=== PATIENT | female | born 1960 | race Caucasian/White ===

== ENCOUNTER 2023-03-10 08:05 | Emergency (ER) | payer BC, SELFPAY ==
--- NOTE | 2023-03-10 08:17 | ED.SKABFB ---
HPI - Skin/Abscess/Foreign Bdy General Chief complaint: Skin/Abscess/Foreign Body <Josefa Jiménez APRN - Last Filed: 03/10/23 08:34> Stated complaint: Left Arm and Leg Rash <Josefa Jiménez APRN - Last Filed: 03/10/23 08:34> Time Seen by Provider: 03/10/23 08:18 <Josefa Jiménez APRN - Last Filed: 03/10/23 08:34> Source: patient and RN notes reviewed <Josefa Jiménez APRN - Last Filed: 03/10/23 08:34> patient and RN notes reviewed <KEL Carpenter - Last Filed: 03/10/23 08:23> Mode of arrival: ambulatory <Josefa Jiménez APRN - Last Filed: 03/10/23 08:34> Limitations: no limitations <Josefa Jiménez APRN - Last Filed: 03/10/23 08:34> History of Present Illness HPI narrative: Patient is a 62-year-old female who presents to the [facility] with complaints of rash to her left arm and leg. Patient states that she noticed the rash on Wednesday evening. Patient states that earlier in the week she was helping her daughter by picking up branches that followed the yard after a storm with her grand kids. Patient reports itching to the areas with the rash. States that she has been using vinegar on the rash to help with itching. Patient states she thinks that the rash is now spreading to her right leg. She denies recent illness or fever. <Josefa Jiménez APRN - Last Filed: 03/10/23 08:34> Related Data Home medications: Home Medications Medication Instructions Recorded Confirmed metformin 500 mg tablet 500 mg PO BID 03/10/23 03/10/23 <Josefa Jiménez APRN - Last Filed: 03/10/23 08:34> Allergies/Adverse reactions: Allergies Allergy/AdvReac Type Severity Reaction Status Date / Time Penicillins Allergy Intermediate Rash Verified 03/10/23 08:31 <Josefa Jiménez APRN - Last Filed: 03/10/23 08:34> Review of Systems Review of Systems: CONSTITUTIONAL: Denies fever, chills, or sweats. EYES: Denies visual changes, redness, or discharge. ENT: Denies otalgia and sore throat CARDIOVASCULAR: Denies chest pain, palpitations, or edema. RESPIRATORY: Denies cough or dyspnea. GASTROINTESTINAL: Denies abdominal pain, nausea, vomiting, or diarrhea. GENITOURINARY: Denies dysuria or hematuria. SKIN: Reports rash and itching. MUSCULOSKELETAL: Denies back pain, joint pain, or myalgia. NEUROLOGIC: Denies headache, numbness, or weakness. Pertinent positives per HPI. <Josefa Jiménez APRN - Last Filed: 03/10/23 08:34> PMF[facility] Comments At the time of my signature, I reviewed and agree with the nursing past medical, surgical, social, and family history. There is no relevant family history pertinent to the patient complaint. <Josefa Jiménez APRN - Last Filed: 03/10/23 08:34> Exam Narrative: GENERAL: This is a well-nourished, well-developed patient, in no apparent distress. HEAD: normocephalic, atraumatic. EYES: Sclera clear/white. Vision is grossly intact. EARS: External ears normal. Hearing grossly intact. NOSE: External nose normal with no obvious nasal discharge, nares without redness, no rhinorrhea. THROAT: Mucous membranes moist, posterior pharynx clear. NECK: Neck supple, non-tender without lymphadenopathy, masses or thyromegaly. CARDIOVASCULAR: Regular rate and rhythm without murmurs, gallops, or rubs. RESPIRATORY: Clear to auscultation. Breath sounds equal bilaterally. No wheezes, rales, or rhonchi. GASTROINTESTINAL: Abdomen soft, non-tender, nondistended. Bowel sounds are active. No hepato-splenomegaly, or palpable masses. No guarding. SKIN: warm, intact with no suspicious lesions, good texture and turgor. Vesicular rash noted to left leg, left arm, and minimally on the right leg. NEURO: awake, alert, and oriented to person, place and time. There were no obvious focal neurologic abnormalities. <Josefa Jiménez APRN - Last Filed: 03/10/23 08:34> Course Course Level of Care: Express Care Visit <Josefa Jiménez HOMEBIRTH MIDWIFE - [place]
[2023-03-10 08:20] VITALS: BP 144/74; PULSE 57; RESP 16; TEMP 36.5; O2SAT 100
== END 2023-03-10 08:35 | disposition home or self-care (01) ==
PROVIDERS: Emergency Provider Nurse Practitioner; PCP Internal Medicine Geriatric Medicine
DX: L24.7 Irritant contact dermatitis due to plants, except food (principal); E11.9 Type 2 diabetes mellitus without complications
CPT/HCPCS: 99213; G0463

== ENCOUNTER 2023-12-13 15:18 | Emergency (ER) | payer BC, SELFPAY ==
--- NOTE | ~2023-12-13 | XR_ITS ---
EXAMINATION: XR knee RT min 4V DATE: 12/13/2023 16:00 INDICATION: Right knee pain. TECHNIQUE: 6 views of right knee were obtained. COMPARISON: None. FINDINGS: There is lateral subluxation of patella. No fracture. There is moderate osteoarthritis of p atellofemoral compartment and mild osteoarthritis of medial and lateral compartments. No knee joint e ffusion. IMPRESSION: 1. Moderate right knee osteoarthritis. Reviewed, dictated and finalized at location A.
[2023-12-13 15:26] VITALS: BP 152/76; PULSE 55; RESP 16; TEMP 36.8; O2SAT 100
--- NOTE | 2023-12-13 15:52 | ED.EXTPRO ---
HPI - Extremity Problem General Chief complaint: Extremity Problem,Nontraumatic Stated complaint: Right knee pain Source: patient Mode of arrival: ambulatory Limitations: no limitations History of Present Illness HPI Narrative: 63-year-old female presented for complaint of right lateral knee pain for about 1 week. She endorses at the onset she started walking more often, and had been kneeling often while working on [employer]. She states at one point she was unable to bear weight on the knee after kneeling for an extended amount of time. She denies swelling, deformity, numbness, tingling, weakness of lower extremity. Has not taken anything pain stating she has high pain tolerance. Rates pain 02/15. Related Data Home Medications Medication Instructions Recorded Confirmed metformin 500 mg tablet 500 mg PO BID 03/10/23 03/10/23 Allergies Allergy/AdvReac Type Severity Reaction Status Date / Time Penicillins Allergy Intermediate Rash Verified 03/10/23 08:31 Review of Systems Review of Systems: CONSTITUTIONAL: Denies body aches, fever, chills CARDIOVASCULAR: Denies chest pain, palpitations, or edema. RESPIRATORY: Denies cough or dyspnea. SKIN: Denies rash, itching, or wounds. MUSCULOSKELETAL: Reports right knee pain NEUROLOGIC: Denies headache, numbness, tingling, or weakness. PSYCH: Denies depression or anxiety. All systems reviewed & are unremarkable except as noted in HPI and below [facility] Comments At time of signature, I have reviewed and agree with nursing past medical, surgical, social and family history unless otherwise noted. Please see nursing chart for further information. There is no relevant family history pertinent to the presenting complaint Exam Narrative: GENERAL: Well-appearing CHEST: Speaks in full sentences. No respiratory distress. HEART: Regular rate and rhythm. Normal and equal peripheral pulses. EXTREMITIES: Patient is able to bear weight and ambulate with pain to the right knee. No bruising, erythema or warmth. The right knee is without obvious asymmetry or deformity when compared to the left knee. Patient is able to tolerate full flexion, extension, internal and external rotation; but reports pain at 180 degree extension and after 90 degrees of flexion. No tenderness to palpation of the patella, no effusion or ballottement. No tenderness over the infrapatellar tendon. No tenderness over the proximal fibular head. No quadriceps tenderness. Distal motor and neurovascular status intact. SKIN: Warm, dry, no rash. Capillary refill less than 3 seconds. NEURO: Alert and oriented x3. PSYCH: Normal mood and affect Course Course Emergency Course: Patient is aware of diagnosis, understands and agrees to treatment plan. Anticipatory guidance given. Patient agrees to follow-up as directed and is aware of reasons to seek care at the emergency department. Portions of this record may have been created with voice recognition software Level of Care: Express Care Visit Vital Signs Vital signs: Vital Signs Temperature 98.3 F 12/13/23 15:26 Pulse Rate 55 L 12/13/23 15:26 Respiratory Rate 16 12/13/23 15:26 Blood Pressure 152/76 H 12/13/23 15:26 Pulse Oximetry 100 12/13/23 15:26 Oxygen Delivery Room Air 12/13/23 15:26 Temperature 98.3 F 12/13/23 15:26 Pulse Rate 55 L 12/13/23 15:26 Respiratory Rate 16 12/13/23 15:26 Blood Pressure 152/76 H 12/13/23 15:26 Pulse Oximetry 100 12/13/23 15:26 Oxygen Delivery Room Air 12/13/23 15:26 Reviewed MDM - Extremity (Nontraumatic) MDM Narrative Medical decision making narrative: results of x-ray reviewed with patient. Discussed physical exam findings. Advised supportive measures and signs/symptoms to go to the ER. Pt is appropriate for outpt treatment and f/u. Differential Diagnosis Differential diagnosis: Likely other (osteoarthritis, patella dislocation, patellar tendonitis, tendon rupture, gout, ba
== END 2023-12-13 16:32 | disposition home or self-care (01) ==
PROVIDERS: Emergency Provider Nurse Practitioner Family; PCP Internal Medicine Geriatric Medicine
DX: M25.561 Pain in right knee (principal)
CPT/HCPCS: 73564; 99213; G0463